=== PATIENT | female | born 1995 | race Caucasian/White ===

== ENCOUNTER → 2019-09-06 | Outpatient (CLI) | payer SELFPAY | LOC: COL.RAD 16:05 | DX: R19.09 Other intra-abdominal and pelvic swelling, mass and lump (principal) ==

== ENCOUNTER 2022-06-03 09:57 | Day surgery (SDC) | payer BC ==
[2022-06-03] VITALS (10 sets, daily range): BP systolic 92–138; BP diastolic 50–78; PULSE 58–89; TEMP 97.7–98.6
[~2022-06-03] VITALS: Ht 160 cm; Wt 53.3 kg
[2022-06-03 10:42] LABS: COLLECTION METHOD CLEAN CATCH
[2022-06-03] MEDS ORDERED: MOTRIN 800800 MG/TAB PO (10:56)
[2022-06-03] MEDS ORDERED: PERCOCET 325 MG1 TA2 PO (10:57)
[2022-06-03 11:10] LABS: PH 7 (5-8); SQUAMOUS EPITHELIAL 0-2 /hpf (0-10); URINE APPEARANCE Clear (CLEAR/HAZY); URINE BACTERIA None Seen /hpf (NONE SEEN); URINE BLOOD 3+ (NEGATIVE); URINE COLOR Straw (YELLOW); URINE GLUCOSE Negative (NEGATIVE); URINE KETONE Trace (NEGATIVE); URINE NITRATE Negative (NEGATIVE); URINE PROTEIN(semi-quant) Negative (NEGATIVE); URINE RBC >50 /hpf (0-2); URINE UROBILINOGEN Negative (NEGATIVE)
[2022-06-03] MEDS ORDERED: ALDACTONE 100M100 MG PO (11:13)
[2022-06-03] MEDS ORDERED: NAPROSYN500 MG PO (11:14)
--- NOTE | 2022-06-03 14:45 | NUR ---
PT ADMITTED FROM PACU. PT IS SLEEPY BUT AWAKES TO VOICE. PT ORIENTED TO ROOM AND FLOOR. PT HAS CALL LIGHT WITH IN REACH. PT INSTRUCTED TO CALL WITH ALL NEEDS.
--- NOTE | 2022-06-03 19:15 | NUR ---
RECEIVED CHANGE OF SHIFT REPORT FROM DAY SHIFT RN.
--- NOTE | 2022-06-03 20:00 | NUR ---
PATIENT DENIES NAUSEA/CHEST PAIN/SOA. TOLERATING ORAL INTAKE WITH NO C/O. SEE MAR FOR MEDS GIVEN, PATIENT AWARE SHE IS ON SCHEDULED IBUPROFEN, DENIES NEED FOR NARCOTICS AT THIS TIME. SCD ON, VAUGHN TO DD IN PLACE/DRAINING CLEAR YELLOW URINE.
--- NOTE | 2022-06-03 23:00 | NUR ---
PATIENT INITIALLY REQUESTED PAIN MEDS, REFUSED WHEN OFFERED BY NURSE STATING SHE WAS ABLE TO GET UP OUT OF BED AND WALK AROUND WITH PAIN RESOLVING AFTER ACTIVITY.
[2022-06-04 03:24] VITALS: BP 93/51; PULSE 53; TEMP 98.7
[2022-06-04 07:00] VITALS: BP 92/49; PULSE 73; TEMP 98.7
--- NOTE | 2022-06-04 07:25 | NUR ---
CHANGE OF SHIFT REPORT GIVEN TO DAY SHIFT RNANNABELLA.
--- NOTE | 2022-06-04 12:31 | NUR ---
DISCHARGE INSTRUCTIONS GIVEN. FOLLOW UP APPOINTMENTS DISCUSSED. PATIENT EDUCATION GIVEN. IV DC'D. PATIENT DENIES ANY QUESTIONS OR CONCERNS. PATIENT ESCORTED OUT.
== END 2022-06-04 12:20 | disposition home or self-care (01) ==
LOC: SDCO 09:57 → SURG 14:58 → SDCO 06-04 12:20
PROVIDERS: Obstetrics & Gynecology
DX: N80.0 Endometriosis of uterus (principal); N72 Inflammatory disease of cervix uteri; D25.0 Submucous leiomyoma of uterus; N83.202 Unspecified ovarian cyst, left side; Z87.891 Personal history of nicotine dependence; G89.29 Other chronic pain
CPT/HCPCS: A4314; J0690; J1100; J1170; J1885; J2405; J2704; J2710; J3010; J7120